=== PATIENT | female | born 1985 | race Caucasian/White ===

== ENCOUNTER → 2017-07-11 | Outpatient (CLI) | payer OTHER ==
[2017-07-11 19:42] LABS: BASO # 0.1 K/mm3 (0.0-0.2); BASO % 0.9 % (0.0-1.0); EOS # 0.1 K/mm3 (0.0-0.50); EOS % 1.5 % (0.0-3.0); LARGE UNSTAINED CELL # 0.1 K/mm3 (0.0-0.4); LARGE UNSTAINED CELL % 1.2 % (0.0-4.0); LYMPH # 2.5 K/mm3 (1.5-4.5); LYMPH % 29.7 % (24.0-44.0); MEAN CORPUSCULAR HEMOGLOBIN 30.4 pg (27.0-33.0); MEAN CORPUSCULAR VOLUME 89.4 fl (80.0-96.0); MONO # 0.5 K/mm3 (0.0-0.8); MONO % 6.2 % (0.0-5.0); NEUTROPHILS # 4.9 K/mm3 (1.8-7.7); NEUTROPHILS % 60.5 % (36.0-66.0); PLATELET COUNT, AUTOMATED 451 k/mm3 (150-450); RED CELL DISTRIBUTION WIDTH 12.5 % (11.5-14.5); WHITE BLOOD COUNT 8.2 K/mm3 (4.0-10.0)
[2017-07-12 11:31] LABS: HBsAg Prenatal NEGATIVE (NEGATIVE)
== END ==
LOC: M SMT 12:02
PROVIDERS: ATTEND Advanced Practice Midwife
DX: Z34.81 Encounter for supervision of other normal pregnancy, first trimester (principal)

== ENCOUNTER → 2017-07-20 | Outpatient (CLI) | payer OTHER ==
[2017-07-20 14:26] LABS: ALT/SGPT 16 U/L (12-78); AST/SGOT 12 U/L (15-37); BILIRUBIN,TOTAL 0.3 MG/DL (0.2-1.0); CREATININE FOR GFR 0.55 MG/DL (0.55-1.02); GLOMERULAR FILTRATION RATE > 60.0 (>60); URIC ACID 2.4 MG/DL (2.6-6.0)
== END ==
LOC: M SMT 09:11
PROVIDERS: ATTEND Advanced Practice Midwife
DX: O13.5 Gestational [pregnancy-induced] hypertension without significant proteinuria, complicating the puerperium (principal)

== ENCOUNTER → 2017-07-25 | Outpatient (CLI) | payer OTHER ==
[2017-07-26 08:20] LABS: TOTAL VOLUME, URINE 1400 ML
[2017-07-26 08:27] LABS: CREATININE, SERUM 0.5 MG/DL (0.6-1.0)
[2017-07-26 08:38] LABS: CREATININE CLEARANCE, URINE 83.8 ML/MIN (75-115)
== END ==
LOC: M LAB 09:00
PROVIDERS: ATTEND Advanced Practice Midwife
DX: O13.5 Gestational [pregnancy-induced] hypertension without significant proteinuria, complicating the puerperium (principal); Z3A.00 Weeks of gestation of pregnancy not specified

== ENCOUNTER → 2017-10-16 | Outpatient (CLI) | payer OTHER ==
--- NOTE | 2017-10-16 08:38 | REP ---
Clinical: Anatomical re-evaluation. Comparison: 09/28/2017 . Findings: Examination demonstrates a single live intrauterine in cephalic presentation. motion is identified by technologist. Placenta is noted right lateral and grade zero without evidence for placenta previa or abruption. Amniotic fluid volume is normal. Cervix measures 4.0 cm in length and appears closed. Nuchal cord noted. Gestational age by LMP 21 weeks 3 days with [place] 02/23/2018 . Gestational age by current measurements 23 weeks 1 day with [place] 02/11/2018 . FHR equals 155 beats per minute. Estimated weight 622 grams ( 85th percentile based on age by current measurements; greater than 97th percentile based on LMP ). Anatomical assessment demonstrates normal structures including cranium, cavum, cerebellum/posterior fossa, facial features, lungs, four-chamber heart/ventricular outflow tracts, diaphragm, stomach, cord insertion/three-vessel cord, kidneys/bladder, and spine. Impression: 1. Single live intrauterine in cephalic presentation. Growth and estimated weight as noted above. 2. In conjunction with prior examination anatomical assessment is complete and normal. 3. Nuchal cord noted. Signed by Primo Raymond MD 10/16/2017 08:28 A
== END ==
LOC: M RAD 07:10
PROVIDERS: ATTEND Specialist
DX: Z34.80 Encounter for supervision of other normal pregnancy, unspecified trimester (principal)

== ENCOUNTER → 2017-12-01 | Outpatient (CLI) | payer OTHER ==
[2017-12-01 13:29] LABS: BASO # 0.1 10^3/uL (0.0-0.2); BASO % 0.7 % (0.0-1.0); EOS # 0.2 10^3/uL (0.0-0.50); EOS % 1.8 % (0.0-3.0); HEMATOCRIT 37.7 % (36.0-47.0); HEMOGLOBIN 12.4 g/dl (12.0-16.0); IMMATURE GRANULOCYTE # 0.1 10^3/uL (0-0); LYMPH # 1.8 10^3/uL (1.5-4.5); LYMPH % 19.8 % (24.0-44.0); MEAN CORPUSCULAR HEMOGLOBIN 29.8 pg (27.0-33.0); MEAN CORPUSCULAR HGB CONC 32.9 g/dl (32.0-36.5); MEAN CORPUSCULAR VOLUME 90.6 fl (80.0-96.0); MONO # 0.7 10^3/uL (0.0-0.8); MONO % 7.3 % (0.0-5.0); NEUTROPHILS # 6.3 10^3/uL (1.8-7.7); NEUTROPHILS % 69.4 % (36.0-66.0); PLATELET COUNT, AUTOMATED 432 10^3/uL (150-450); RED BLOOD COUNT 4.16 10^6/uL (4.00-5.40); RED CELL DISTRIBUTION WIDTH 12.9 % (11.5-14.5)
[2017-12-01 13:45] LABS: GLUCOSE CHALLENGE TEST 1 HOUR 92 MG/DL (LESS THAN 140)
== END ==
LOC: M SMT 08:22
DX: Z34.83 Encounter for supervision of other normal pregnancy, third trimester (principal)

== ENCOUNTER → 2017-12-15 | Outpatient (CLI) | payer OTHER | LOC: M RAD 07:32 | DX: O10.012 Pre-existing essential hypertension complicating pregnancy, second trimester (principal); Z3A.33 33 weeks gestation of pregnancy; O32.1XX0 Maternal care for breech presentation, not applicable or unspecified | CPT/HCPCS: 76819 ==

== ENCOUNTER → 2017-12-19 | Outpatient (REF) | payer OTHER | LOC: M LAB REF 11:39 | DX: O10.012 Pre-existing essential hypertension complicating pregnancy, second trimester (principal) ==

== ENCOUNTER → 2017-12-21 | Outpatient (CLI) | payer OTHER | LOC: M RAD 07:30 | DX: O10.012 Pre-existing essential hypertension complicating pregnancy, second trimester (principal); Z3A.33 33 weeks gestation of pregnancy | CPT/HCPCS: 76815 ==

== ENCOUNTER → 2018-01-04 | Outpatient (CLI) | payer OTHER ==
[~2018-01-04] MED LIST: ISOVUE-370 76% 100ML VIAL (Q9967) As Ordered
== END ==
LOC: M RAD 07:32
DX: Z36.9 Encounter for antenatal screening, unspecified (principal); O10.012 Pre-existing essential hypertension complicating pregnancy, second trimester; Z3A.35 35 weeks gestation of pregnancy
CPT/HCPCS: 76819

== ENCOUNTER → 2018-01-11 | Outpatient (CLI) | payer OTHER | LOC: M RAD 07:39 | DX: I10 Essential (primary) hypertension (principal) ==

== ENCOUNTER → 2018-01-18 | Outpatient (CLI) | payer OTHER | LOC: M RAD 07:30 | DX: O10.012 Pre-existing essential hypertension complicating pregnancy, second trimester (principal); Z3A.00 Weeks of gestation of pregnancy not specified | CPT/HCPCS: 76815 ==

== ENCOUNTER → 2018-01-24 | Outpatient (REF) | payer OTHER | LOC: M LAB REF 13:13 | DX: O10.013 Pre-existing essential hypertension complicating pregnancy, third trimester (principal); Z3A.00 Weeks of gestation of pregnancy not specified | CPT/HCPCS: 87186 ==

== ENCOUNTER 2018-01-25 07:41 | Outpatient (CLI) | payer OTHER ==
[2018-01-25] MEDS: ACETAMINOPHEN 500 MG TAB PO (09:08)
[2018-01-25 09:31] LABS: HEMATOCRIT 39.1 % (36.0-47.0); MEAN CORPUSCULAR HEMOGLOBIN 27.9 pg (27.0-33.0); MEAN CORPUSCULAR HGB CONC 33.2 g/dl (32.0-36.5); MEAN CORPUSCULAR VOLUME 83.9 fl (80.0-96.0); PLATELET COUNT, AUTOMATED 393 10^3/uL (150-450); RED BLOOD COUNT 4.66 10^6/uL (4.00-5.40); RED CELL DISTRIBUTION WIDTH 13.1 % (11.5-14.5); WHITE BLOOD COUNT 8.9 10^3/uL (4.0-10.0)
[2018-01-25 09:41] LABS: INR 0.95; PROTHROMBIN TIME 12.8 SECONDS (12.4-14.5)
[2018-01-25 09:42] LABS: PARTIAL THROMBOPLASTIN TIME 25.6 SECONDS (26.8-37.9)
[2018-01-25 09:48] LABS: TOTAL PROTEIN,RANDOM URINE 17.9 MG/DL (0.0-12.0)
[2018-01-25 10:03] LABS: ALBUMIN 2.7 GM/DL (3.2-5.2); ALBUMIN/GLOBULIN RATIO 0.69 (1.00-1.93); ALKALINE PHOSPHATASE 156 U/L (45-117); ALT/SGPT 17 U/L (12-78); ANION GAP 8 MEQ/L (8-16); AST/SGOT 20 U/L (7-37); BILIRUBIN,TOTAL 0.2 MG/DL (0.2-1.0); BLOOD UREA NITROGEN 9 MG/DL (7-18); CALCIUM LEVEL 9.1 MG/DL (8.5-10.1); CARBON DIOXIDE LEVEL 23 MEQ/L (21-32); CHLORIDE LEVEL 108 MEQ/L (98-107); CREATININE FOR GFR 0.49 MG/DL (0.55-1.30); GLOMERULAR FILTRATION RATE > 60.0 (>60); GLUCOSE, FASTING 79 MG/DL (70-100); LDH LACTATE DEHYDROGENASE 140 U/L (84-246); POTASSIUM SERUM 4.8 MEQ/L (3.5-5.1); SODIUM LEVEL 139 MEQ/L (136-145); TOTAL PROTEIN 6.6 GM/DL (6.4-8.2); URIC ACID 4.8 MG/DL (2.6-6.0)
== END 2018-01-25 11:25 | disposition home or self-care (01) ==
LOC: M LDO 07:41
DX: O99.89 Other specified diseases and conditions complicating pregnancy, childbirth and the puerperium (principal); Z3A.35 35 weeks gestation of pregnancy; W01.198A Fall on same level from slipping, tripping and stumbling with subsequent striking against other object, initial encounter; R10.9 Unspecified abdominal pain
CPT/HCPCS: 76815

== ENCOUNTER → 2018-01-29 | Outpatient (CLI) | payer OTHER | LOC: M RAD 13:17 | DX: O10.012 Pre-existing essential hypertension complicating pregnancy, second trimester (principal); Z3A.39 39 weeks gestation of pregnancy | CPT/HCPCS: 76819 ==

== ENCOUNTER 2018-02-05 06:34 | Inpatient (IN) | payer OTHER ==
[2018-02-05] MEDS: LR 1,000 ML IV ×3 (08:18→18:01)
[2018-02-05] MEDS: OXYTOCIN DRIP 30 UNITS in APPROPRIATE DILUENT 1 EA IV (08:18)
[2018-02-05 08:23] LABS: HEMATOCRIT 35.9 % (36.0-47.0); HEMOGLOBIN 12.2 g/dl (12.0-16.0); MEAN CORPUSCULAR HEMOGLOBIN 28.2 pg (27.0-33.0); MEAN CORPUSCULAR VOLUME 83.1 fl (80.0-96.0); PLATELET COUNT, AUTOMATED 373 10^3/uL (150-450); RED BLOOD COUNT 4.32 10^6/uL (4.00-5.40); RED CELL DISTRIBUTION WIDTH 13.2 % (11.5-14.5); WHITE BLOOD COUNT 11.4 10^3/uL (4.0-10.0)
[2018-02-05] MEDS: PENICILLIN G POTASSIUM IV 5 MU in D5W MINI-BAG PLUS 100 ML IV (09:14)
[2018-02-05 09:47] LABS: AMPHETAMINES URINE REFLEX NEGATIVE (NEGATIVE); BARBITURATES URINE REFLEX NEGATIVE (NEGATIVE); BENZODIAZEPINES URINE REFLEX NEGATIVE (NEGATIVE); COCAINE METABOLITE URINE REFLE NEGATIVE (NEGATIVE); METHADONE URINE REFLEX NEGATIVE (NEGATIVE); OPIATES URINE REFLEX NEGATIVE (NEGATIVE); PHENCYCLIDINE URINE REFLEX NEGATIVE (NEGATIVE)
[2018-02-05 10:04] LABS: CANNABINOIDS URINE REFLEX PENDING CONFIRMATION (NEGATIVE)
[2018-02-05] MEDS: PENICILLIN G POTASSIUM IV 2.5 MU in APPROPRIATE DILUENT 1 EA IV ×3 (13:06→21:47)
[2018-02-05] MEDS ORDERED: FENTANYL 2MCG/ML ROPIVACAINE 0.2% IN 0.9% NACL 200ML IVBAG As Ordered (17:40)
[2018-02-05] MEDS ORDERED: ONDANSETRON 4MG/2ML VIAL (J2405) As Ordered (20:15)
[2018-02-06] MEDS: OXYTOCIN DRIP 30 UNITS in APPROPRIATE DILUENT 1 EA IV (03:03)
[2018-02-06] MEDS ORDERED: ANUSOL HC CREAM 30GM TOP (03:15)
[2018-02-06] MEDS ORDERED: MEASLES,MUMPS,RUBELLA VACCINE INJ (MMR-II) (90707) SC (03:15)
[2018-02-06] MEDS ORDERED: MOM 30ML SUSPENSION UDC PO (03:15)
[2018-02-06] MEDS ORDERED: PROMETHAZINE 25 MG TAB PO (03:15)
[2018-02-06] MEDS ORDERED: RHOGAM 300 MCG (1500 IU) INJ (J2790) IM (03:15)
[2018-02-06] MEDS ORDERED: DIBUCAINE 1% OINTMENT 30GM TOP (03:15)
[2018-02-06] MEDS ORDERED: METHYLERGONOVINE MALEATE 0.2 MG TAB PO (03:15)
[2018-02-06] MEDS: IBUPROFEN 800 MG TAB PO ×2 (04:45→12:43)
[2018-02-06] MEDS: ACETAMINOPHEN 500 MG TAB PO ×3 (04:45→18:50)
[2018-02-06] MEDS: PRENATAL VITAMINS CHEWABLE TABLET PO (07:27)
[2018-02-06] MEDS: DOCUSATE SODIUM 100 MG CAP PO (18:50)
[2018-02-07] MEDS: PRENATAL VITAMINS CHEWABLE TABLET PO (09:11)
[2018-02-07] MEDS: IBUPROFEN 800 MG TAB PO (09:19)
[2018-02-08 14:18] LABS: Cannabinoid Positive (.); GC Carboxy THC 285 ng/mL (Cutoff=10)
== END 2018-02-07 12:50 | disposition home or self-care (01) | DRG 774 ==
LOC: M LDI 06:34 → M OBS 02-06 04:19
PROVIDERS: Specialist
PROC: 3E033VJ Introduction of Other Hormone into Peripheral Vein, Percutaneous Approach (ICD-10-PCS; 2018-02-05)
PROC: 10E0XZZ Delivery of Products of Conception, External Approach (ICD-10-PCS; principal; 2018-02-06)
PROC: 0HQ9XZZ Repair Perineum Skin, External Approach (ICD-10-PCS; 2018-02-06)
DX: O10.02 Pre-existing essential hypertension complicating childbirth (principal); O34.211 Maternal care for low transverse scar from previous cesarean delivery; Z37.0 Single live birth; Z3A.37 37 weeks gestation of pregnancy; O70.0 First degree perineal laceration during delivery

== ENCOUNTER → 2018-05-09 | Outpatient (CLI) | payer OTHER ==
[2018-05-09 20:37] LABS: ALBUMIN 3.5 GM/DL (3.2-5.2); ALBUMIN/GLOBULIN RATIO 0.92 (1.00-1.93); ALKALINE PHOSPHATASE 80 U/L (45-117); ALT/SGPT 27 U/L (12-78); ANION GAP 9 MEQ/L (8-16); AST/SGOT 22 U/L (7-37); BILIRUBIN,TOTAL 0.2 MG/DL (0.2-1.0); BLOOD UREA NITROGEN 17 MG/DL (7-18); CALCIUM LEVEL 8.8 MG/DL (8.5-10.1); CARBON DIOXIDE LEVEL 26 MEQ/L (21-32); CHLORIDE LEVEL 105 MEQ/L (98-107); CREATININE FOR GFR 0.87 MG/DL (0.55-1.30); GLOMERULAR FILTRATION RATE > 60.0 (>60); GLUCOSE, FASTING 75 MG/DL (70-100); POTASSIUM SERUM 4.3 MEQ/L (3.5-5.1); SODIUM LEVEL 140 MEQ/L (136-145); TOTAL PROTEIN 7.3 GM/DL (6.4-8.2)
[2018-05-09 21:18] LABS: BASO # 0.1 10^3/uL (0.0-0.2); BASO % 0.7 % (0.0-1.0); EOS # 0.2 10^3/uL (0.0-0.50); EOS % 2.1 % (0.0-3.0); HEMOGLOBIN 12.8 g/dl (12.0-15.5); IMMATURE GRANULOCYTE % 0.2 % (0-3.0); LYMPH # 3.8 10^3/uL (1.5-4.5); LYMPH % 45.9 % (24.0-44.0); MEAN CORPUSCULAR HEMOGLOBIN 27.8 pg (27.0-33.0); MEAN CORPUSCULAR VOLUME 86.8 fl (80.0-96.0); MONO # 0.7 10^3/uL (0.0-0.8); MONO % 7.9 % (0.0-5.0); NEUTROPHILS # 3.6 10^3/uL (1.8-7.7); NEUTROPHILS % 43.2 % (36.0-66.0); PLATELET COUNT, AUTOMATED 455 10^3/uL (150-450); RED BLOOD COUNT 4.61 10^6/uL (4.00-5.40); RED CELL DISTRIBUTION WIDTH 13.2 % (11.5-14.5); WHITE BLOOD COUNT 8.3 10^3/uL (4.0-10.0)
[2018-05-12 00:07] LABS: Lyme Disease IgG/IgM Antibodie <0.91 ISR (0.00-0.90); Lyme Disease IgM Ab Quantitati <0.80 index (0.00-0.79)
== END ==
LOC: M WUC 16:08
DX: R50.9 Fever, unspecified (principal)

== ENCOUNTER → 2019-07-09 | Outpatient (REF) | payer OTHER ==
[~2019-07-09] MED LIST changes: +IBUP-1114 PO; -ISOVUE-370 76% 100ML VIAL (Q9967) As Ordered; +LABE10TAB PO; +MAPA500T2 PO; +PRENTAB9 PO
[2019-07-12 14:17] LABS: HPV HYBRID CAPTURE II Negative (Negative)
== END ==
LOC: M LAB REF 18:44
PROVIDERS: ATTEND Advanced Practice Midwife
DX: Z12.4 Encounter for screening for malignant neoplasm of cervix (principal); R87.610 Atypical squamous cells of undetermined significance on cytologic smear of cervix (ASC-US)

== ENCOUNTER → 2019-11-26 | Outpatient (REF) | payer OTHER | LOC: M SFHCLERA 10:23 | PROVIDERS: ATTEND Physician Assistant | DX: J02.9 Acute pharyngitis, unspecified (principal) ==

== ENCOUNTER → 2019-11-26 | Outpatient (CLI) | payer OTHER ==
--- NOTE | 2019-11-26 10:25 | REP ---
Clinical: Cough . Comparison: None . Technique: PA and lateral. Findings: The mediastinum and cardiac silhouette are normal. The lung goodrich are clear and without acute consolidation, effusion, or pneumothorax. The skeletal structures are intact and normal. Impression: 1. No acute cardiopulmonary process. Electronically Signed by Primo Raymond MD 11/26/2019 10:18 A
== END ==
LOC: M LRY 09:53
PROVIDERS: ATTEND Physician Assistant
DX: R05 Cough (principal)

== ENCOUNTER → 2020-02-18 | Outpatient (REF) | payer OTHER | LOC: M SFHCLERA 09:42 | PROVIDERS: ATTEND Nurse Practitioner Family | DX: R68.89 Other general symptoms and signs (principal) ==

== ENCOUNTER 2024-02-11 15:03 | Emergency (ER) | payer OTHER ==
[~2024-02-11] VITALS: Ht 160 cm; Wt 90.9 kg
[~2024-02-11 15:03] MED LIST changes: +LABE100T6 PO; -LABE10TAB PO
[2024-02-11 15:04] VITALS: BP 146/94; TEMP 97.4; O2SAT 98
[2024-02-11 15:39] LABS: BASO # 0.1 10^3/uL (0.0-0.2); BASO % 0.9 % (0.0-1.0); EOS # 0.1 10^3/uL (0.0-0.5); EOS % 0.8 % (0.0-3.0); LYMPH # 2.9 10^3/uL (1.5-5.0); LYMPH % 24.5 % (24.0-44.0); MEAN CORPUSCULAR HEMOGLOBIN 29.4 pg (27.0-33.0); MEAN CORPUSCULAR HGB CONC 32.6 g/dl (32.0-36.5); MONO # 0.5 10^3/uL (0.0-0.8); MONO % 4.4 % (2.0-8.0); NEUTROPHILS # 8.2 10^3/uL (1.5-8.5); NEUTROPHILS % 68.9 % (36.0-66.0); PLATELET COUNT, AUTOMATED 504 10^3/uL (150-450); RED BLOOD COUNT 5.11 10^6/uL (4.00-5.40)
[2024-02-11 16:03] LABS: HCG, SERUM QUALITATIVE NEGATIVE (NEGATIVE)
[2024-02-11 16:04] LABS: LIPASE 24 U/L (12-53)
[2024-02-11 16:06] LABS: ALBUMIN 3.7 G/DL (3.2-5.2); ALKALINE PHOSPHATASE 78 U/L (46-116); ALT/SGPT 15 U/L (7.0-40); AST/SGOT 18 U/L (<34); BILIRUBIN,DIRECT < 0.1 MG/DL (<0.4); BILIRUBIN,TOTAL 0.4 MG/DL (0.3-1.2); TOTAL PROTEIN 7.3 G/DL (5.7-8.2)
[2024-02-11 16:10] LABS: RSV AMPLIFICATION NEGATIVE (NEGATIVE)
[2024-02-11] MEDS: ONDANSETRON 4MG 2ML VIAL IV ONE (16:10)
[2024-02-11] MEDS ORDERED: DEBL1TAB (16:20)
[2024-02-11] MEDS: NS 1,000 ML IV ONE (16:47)
[2024-02-11] MEDS: HALOPERIDOL 5MG/ML 1ML VIAL IV ONE (16:47)
[2024-02-11] MEDS ORDERED: ONDA4TAB6 PO (18:04)
== END 2024-02-11 18:19 | disposition home or self-care (01) ==
LOC: M ED 15:03
DX: R11.2 Nausea with vomiting, unspecified (principal); R19.7 Diarrhea, unspecified; I10 Essential (primary) hypertension; F32.A Depression, unspecified; F12.10 Cannabis abuse, uncomplicated; Z79.83 Long term (current) use of bisphosphonates; Z79.899 Other long term (current) drug therapy
CPT/HCPCS: 80047; 80076; 83690; 84703; 85025; 87631; 96374; 96375; 99284; J1630; J2405

== ENCOUNTER 2024-02-18 09:21 | Emergency (ER) | payer OTHER ==
[~2024-02-18] VITALS: Ht 160 cm; Wt 87.4 kg
[~2024-02-18 09:21] MED LIST changes: +DEBL1TAB; +ONDA4TAB6 PO
[2024-02-18] MEDS: METOCLOPRAMIDE INJ 10MG/2ML VIAL IV ONE (10:16)
[2024-02-18] MEDS: PANTOPRAZOLE 40MG VIAL IV ONE (10:16)
[2024-02-18] MEDS: SUCRALFATE SUSP 1GM/10ML UD PO ONE (10:16)
[2024-02-18] MEDS: NS 1,000 ML IV ONE (10:16)
[2024-02-18 10:27] LABS: BASO # 0.1 10^3/uL (0.0-0.2); BASO % 0.6 % (0.0-1.0); EOS # 0.1 10^3/uL (0.0-0.5); EOS % 0.8 % (0.0-3.0); HEMATOCRIT 47.7 % (36.0-47.0); HEMOGLOBIN 15.8 g/dl (12.0-15.5); LYMPH # 2.5 10^3/uL (1.5-5.0); LYMPH % 17.3 % (24.0-44.0); MEAN CORPUSCULAR HEMOGLOBIN 29.4 pg (27.0-33.0); MEAN CORPUSCULAR HGB CONC 33.1 g/dl (32.0-36.5); MEAN CORPUSCULAR VOLUME 88.7 fl (80.0-96.0); MONO # 0.7 10^3/uL (0.0-0.8); MONO % 4.9 % (2.0-8.0); NEUTROPHILS # 11.1 10^3/uL (1.5-8.5); NEUTROPHILS % 75.9 % (36.0-66.0); PLATELET COUNT, AUTOMATED 551 10^3/uL (150-450); RED BLOOD COUNT 5.38 10^6/uL (4.00-5.40); WHITE BLOOD COUNT 14.6 10^3/uL (4.0-10.0)
[2024-02-18 10:48] LABS: LIPASE 34 U/L (12-53)
[2024-02-18 10:49] LABS: HCG, SERUM QUALITATIVE NEGATIVE (NEGATIVE)
[2024-02-18 10:50] LABS: ALBUMIN 3.9 G/DL (3.2-5.2); ALKALINE PHOSPHATASE 91 U/L (46-116); ALT/SGPT 17 U/L (7.0-40); AST/SGOT 11 U/L (<34); BILIRUBIN,DIRECT 0.2 MG/DL (<0.4); BILIRUBIN,TOTAL 0.6 MG/DL (0.3-1.2); BLOOD UREA NITROGEN 10 MG/DL (9-23); CALCIUM LEVEL 9.7 MG/DL (8.5-10.1); CARBON DIOXIDE LEVEL 30 MMOL/L (20-31); CHLORIDE LEVEL 104 MMOL/L (98-107); CREATININE FOR GFR 0.74 MG/DL (0.55-1.30); GLOMERULAR FILTRATION RATE > 60.0 (>60); GLUCOSE, FASTING 102 MG/DL (60-100); POTASSIUM SERUM 4.7 MMOL/L (3.5-5.1); SODIUM LEVEL 137 MMOL/L (136-145); TOTAL PROTEIN 7.5 G/DL (5.7-8.2)
[2024-02-18 10:52] LABS: THYROID STIMULATING HORMONE 1.253 uIU/ML (0.55-4.78)
[2024-02-18] MEDS ORDERED: ISOVUE-370 76% 100ML VIAL As Ordered ONE (11:06)
[2024-02-18 11:41] LABS: AMPHETAMINES LEVEL URINE NEGATIVE (NEGATIVE); BARBITURATES URINE NEGATIVE (NEGATIVE); BENZODIAZEPINES URINE NEGATIVE (NEGATIVE); COCAINE METABOLITE URINE NEGATIVE (NEGATIVE); METHADONE URINE NEGATIVE (NEGATIVE); OPIATES URINE NEGATIVE (NEGATIVE); PHENCYCLIDINE URINE NEGATIVE (NEGATIVE)
[2024-02-18 11:42] LABS: CANNABINOIDS URINE POSITIVE (NEGATIVE)
[2024-02-18 12:55] VITALS: BP 140/72; TEMP 99.7; O2SAT 98
== END 2024-02-18 12:59 | disposition home or self-care (01) ==
LOC: M ED 11:04
DX: R11.2 Nausea with vomiting, unspecified (principal); F32.A Depression, unspecified; Z79.3 Long term (current) use of hormonal contraceptives
CPT/HCPCS: 71275; 74177; 80048; 80076; 80307; 83690; 83735; 84443; 84703; 85025; 87486; 87581; 87633; 87798; 93005; 93041; 96361; 96374; 99284; C9113; J2765; Q9967

== ENCOUNTER → 2024-12-23 | Outpatient (REF) ==
[~2024-12-23] MED LIST changes: +ONDA-282 PO; -ONDA4TAB6 PO
== END ==
LOC: M LAB 09:06
PROVIDERS: ATTEND Family Medicine
DX: Z00.00 Encounter for general adult medical examination without abnormal findings (principal)

== ENCOUNTER → 2025-02-12 | Outpatient (REF) | LOC: M EMP 07:55 | PROVIDERS: ATTEND Family Medicine | DX: Z11.52 Encounter for screening for COVID-19 (principal); Z20.828 Contact with and (suspected) exposure to other viral communicable diseases ==